=== PATIENT | male | born 1960 | race Caucasian/White ===

== ENCOUNTER → 2022-10-29 09:11 | Outpatient (CLI) | payer OTHER, SELFPAY ==
[2022-10-29 11:20] LABS: Alanine Aminotransferase 22 IU/L (<50); Albumin 4.1 g/dL (3.5-5.0); Albumin Globulin Ratio 1.4 (1.0-2.8); Alkaline Phosphatase 73 U/L (38-126); Aspartate Aminotransferase 30 IU/L (17-59); BUN Creatinine Ratio 14.6 (6-22); Bilirubin Total 0.6 mg/dL (0.2-1.3); Blood Urea Nitrogen 14 mg/dL (9-20); Carbon Dioxide 28 mmol/L (22-32); Chloride 104 mmol/L (98-107); Cholesterol 274 mg/dL (140-199); Estimated Glomerular Filt Rate > 60 mL/min (>60); Glucose 89 mg/dL (80-110); HDL Cholesterol 62 mg/dL (40-60); HEMOLYSIS < 15 (0-50); LDL Cholesterol Calculated 194 mg/dL (<100); Potassium 4.2 mmol/L (3.4-5.1); Sodium 138 mmol/L (137-145); Total Protein 7.1 g/dL (6.3-8.2); Triglycerides 88 mg/dL (35-150)
[2022-10-29 11:46] LABS: Prostate Specific Antigen 0.981 ng/mL (0.10-4.00)
== END ==
PROVIDERS: Family Provider Family Medicine; PCP Family Medicine; Referring Provider Family Medicine; Visit Provider Family Medicine
DX: E78.2 Mixed hyperlipidemia (principal); Z12.5 Encounter for screening for malignant neoplasm of prostate; Z68.31 Body mass index [BMI] 31.0-31.9, adult
CPT/HCPCS: 36415; 80053; 80061; 84153

== ENCOUNTER → 2022-11-24 07:47 | Outpatient (CLI) | payer OTHER, SELFPAY ==
--- NOTE | 2022-11-24 07:49 | DI.NM.S_ITS ---
PROCEDURE: NM EXERCISE TREADMILL NON NUC COMPARISON: None. INDICATIONS: abnormal EKG FINDINGS: the patient exercised for 12 minutes and 28 seconds reaching 96% of maximum predicted heart rate. 12.8METs, CHARLIE -50%. Appropriate BP response to exercise. No angina, no ST changes, and no ectopy during exercise or recovery. IMPRESSION: Low risk, normal treadmill ECG only stress test with excellent exercise tolerance (CHARLIE -50%). No angina during the study. Dictated by: Adriana Dave MD on 11/25/2022 at 14:32 Approved by: Adriana Dave MD on 11/25/2022 at 14:34
== END ==
PROVIDERS: Family Provider Family Medicine; PCP Family Medicine; Referring Provider Family Medicine; Visit Provider Family Medicine
DX: R94.31 Abnormal electrocardiogram [ECG] [EKG] (principal)
CPT/HCPCS: 93017

== ENCOUNTER → 2022-12-03 08:15 | Outpatient (CLI) | payer OTHER, SELFPAY ==
[2022-12-05 23:39] LABS: Lipoprotein (a) 170.7 nmol/L (<75.0)
== END ==
PROVIDERS: Family Provider Family Medicine; PCP Family Medicine; Referring Provider Family Medicine; Visit Provider Family Medicine
DX: E78.2 Mixed hyperlipidemia (principal); R07.9 Chest pain, unspecified
CPT/HCPCS: 36415; 83695; 83721; 86140

== ENCOUNTER → 2023-12-03 09:05 | Outpatient (CLI) | payer OTHER, SELFPAY ==
[2023-12-03 10:16] LABS: Cholesterol 169 mg/dL (140-199); HDL Cholesterol 60 mg/dL (40-60); LDL Cholesterol Calculated 92 mg/dL (<100); Triglycerides 84 mg/dL (35-150)
[2023-12-06 17:09] LABS: Lipoprotein (a) 145.1 nmol/L (<75.0)
== END ==
PROVIDERS: Family Provider Family Medicine; PCP Family Medicine; Referring Provider Internal Medicine; Visit Provider Internal Medicine
DX: E78.00 Pure hypercholesterolemia, unspecified (principal)
CPT/HCPCS: 36415; 80061; 83695

== ENCOUNTER → 2024-02-08 16:07 | Outpatient (CLI) | payer OTHER, SELFPAY ==
--- NOTE | 2024-02-08 16:09 | DI.RAD.S_ITS ---
PROCEDURE: XR SHOULDER LT MIN 2V INDICATIONS: pain x 3weeks TECHNIQUE: 3 views of the shoulder were acquired. COMPARISON: None. FINDINGS: Bones: No fractures or dislocations. No suspicious bony lesions. Visualized ribs appear intact. Soft tissues: No suspicious soft tissue calcifications. IMPRESSION: No acute bony abnormality. Approved by: Adenike Zuniga M.D.,Ph.D. on 02/09/2024 at 0:42
== END ==
PROVIDERS: Family Provider Family Medicine; PCP Family Medicine; Referring Provider Physician Assistant; Visit Provider Physician Assistant
DX: S16.1XXA Strain of muscle, fascia and tendon at neck level, initial encounter (principal); M77.8 Other enthesopathies, not elsewhere classified; X58.XXXA Exposure to other specified factors, initial encounter
CPT/HCPCS: 73030

== ENCOUNTER → 2024-03-07 07:16 | Outpatient (CLI) | payer OTHER, SELFPAY ==
--- NOTE | 2024-03-07 07:30 | DI.MRI.S_ITS ---
PROCEDURE: MR KNEE LT WO CON INDICATIONS: left knee pain/swelling TECHNIQUE: Noncontrast sagittal PD fast spin echo and T2 fast spin echo with fat saturation, sagittal 3-D FLASH with fat saturation; coronal T1 spin echo and PD fast spin echo with fat saturation, and axial PD fast spin echo with fat saturation through the knee. COMPARISON: None. FINDINGS: Image quality: Excellent. Anterior cruciate ligament: Mild mucoid degeneration of the anterior cruciate ligament. Posterior cruciate ligament: Intact. Medial collateral ligament: Intact. Lateral collateral ligament: Intact. Medial meniscus: Radial tearing of the medial meniscus at the junction of the posterior horn and body. Small superior displaced component at the meniscal body extending into the medial femoral gutter. The meniscal body is mildly extruded beyond the femorotibial joint line. Lateral meniscus: Free edge fibrillation versus shallow radial tearing of the body of the lateral meniscus. There is suspected partial tearing at the posterior root attachment of the lateral meniscus with mild meniscal extrusion. Medial and lateral tendons: The semimembranosus tendon insertions appear intact. Visualized portions of the pes anserinus tendons appear normal. The popliteus tendon is intact. Iliotibial band appears normal. Anterior structures: The quadriceps and patellar tendons appear intact. No patellar subluxation. No femoral trochlear dysplasia or ventral trochlear prominence. No edema in the infrapatellar fat pad. Bones and cartilage: No bone marrow contusions or fractures. Medial femorotibial cartilage: High-grade partial thickness cartilage thinning irregularity in the weight-bearing portion of the medial femorotibial compartment with superimposed small area of full-thickness cartilage loss at the anterior weight-bearing portion of the medial tibial plateau with focal subchondral edema and cystic changes. Lateral femorotibial cartilage: Small full-thickness cartilage defect is seen at the posterior weight-bearing portion of the lateral tibial plateau with subchondral edema. [id number] background cartilage thinning in the lateral compartment. Patellofemoral cartilage: Full-thickness cartilage loss is seen at the trochlear groove with associated subchondral edema. There is partial-thickness cartilage irregularity in the remainder of the anterior compartment. Soft tissues: Small joint effusion. Small medial popliteal cyst with adjacent edema that may indicate prior cyst rupture. A large fluid collection is seen in the prepatellar soft tissues at the anterior medial aspect of the knee measuring up to 10.7 x 2.1 x 9.2 cm. There is surrounding subcutaneous edema. IMPRESSION: 1. Complex tearing of the medial meniscus with a dominant radial component at the junction of the posterior horn and body and mild meniscal extrusion as well as a small flap tear at the meniscal body extending into the medial femoral gutter. 2. Partial tearing of the lateral meniscus at the posterior root attachment with mild meniscal extrusion. Free edge fibrillation versus shallow radial tearing at the lateral meniscal body. 3. Small areas of full-thickness cartilage loss are seen in all 3 compartments with associated subchondral edema. Moderate background chondromalacia is present. 4. Small joint effusion. Small medial popliteal cyst with signs of prior cyst rupture. 5. Large prepatellar bursal effusion with surrounding subcutaneous edema. Approved by: Forrest Pedraza M.D. on 03/07/2024 at 10:52
== END ==
PROVIDERS: Family Provider Family Medicine; PCP Family Medicine; Referring Provider Family Medicine; Visit Provider Family Medicine
DX: S83.232A Complex tear of medial meniscus, current injury, left knee, initial encounter (principal); S83.282A Other tear of lateral meniscus, current injury, left knee, initial encounter; S83.92XA Sprain of unspecified site of left knee, initial encounter; M25.462 Effusion, left knee; M94.262 Chondromalacia, left knee; M71.22 Synovial cyst of popliteal space [Baker], left knee; X58.XXXA Exposure to other specified factors, initial encounter
CPT/HCPCS: 73721

== ENCOUNTER → 2024-09-18 07:11 | Outpatient (CLI) | payer MEDICARE, SELFPAY ==
[2024-09-18 08:43] LABS: Alanine Aminotransferase 26 IU/L (<50); Albumin 3.6 g/dL (3.5-5.0); Albumin Globulin Ratio 1.3 (1.0-2.8); Alkaline Phosphatase 75 U/L (38-126); Aspartate Aminotransferase 33 IU/L (17-59); BUN Creatinine Ratio 17.9 (6-22); Bilirubin Total 0.5 mg/dL (0.2-1.3); Blood Urea Nitrogen 17 mg/dL (9-20); Calcium 9.1 mg/dL (8.4-10.2); Carbon Dioxide 24 mmol/L (22-32); Chloride 108 mmol/L (98-107); Cholesterol 168 mg/dL (140-199); Estimated Glomerular Filt Rate > 60 mL/min (>60); Globulin 2.7 g/dL (1.7-4.1); Glucose 94 mg/dL (70-99); HDL Cholesterol 57 mg/dL (40-60); HEMOLYSIS < 15 (0-50); LDL Cholesterol Calculated 86 mg/dL (<100); Potassium 4.1 mmol/L (3.4-5.1); Sodium 138 mmol/L (137-145); Total Protein 6.3 g/dL (6.3-8.2); Triglycerides 126 mg/dL (35-150)
[2024-09-18 09:05] LABS: Prostate Specific Antigen Scrn 1.06 ng/mL (0.1-4.0)
[2024-09-19 04:36] LABS: CRP, High Sensitivity 0.88 mg/L (0.00-3.00)
[2024-09-19 13:41] LABS: Insulin Level Total 3.6 uIU/mL (2.6-24.9)
== END ==
PROVIDERS: Family Provider Family Medicine; PCP Family Medicine; Referring Provider Family Medicine; Visit Provider Family Medicine
DX: E88.810 Metabolic syndrome (principal); Z12.5 Encounter for screening for malignant neoplasm of prostate; E66.9 Obesity, unspecified; Z00.01 Encounter for general adult medical examination with abnormal findings; E78.2 Mixed hyperlipidemia; Z78.9 Other specified health status; R68.82 Decreased libido
CPT/HCPCS: 36415; 80053; 80061; 83525; 84402; 84403; 86140; G0103

== ENCOUNTER 2024-10-24 12:07 | Day surgery (SDC) | payer MEDICARE, SELFPAY ==
[2024-10-24] VITALS (9 sets, daily range): BP systolic 118–150; BP diastolic 68–77; PULSE 54–74; RESP 10–27; TEMP 36.2–36.7; O2SAT 83–100
--- NOTE | 2024-10-24 13:48 | P.HP_ITS ---
History of Present Illness History of Present Illness Chief complaint: [facility] – [place] Narrative: Family history of colon cancer in his father and uncle. He however tested negative for any genetic predisposition [facility] Medical History (Updated 09/13/24 @ 09:08 by Angie Diego DO) Traumatic hemarthrosis of left knee (~02/03/24) Abnormal EKG Surgical History (Updated 08/30/17 @ 06:24 by Conversion Provider) Status post arthroscopy (11/30/08) Family History (Updated 03/21/14 @ 00:00 by Conversion Provider) Father Alcoholic Social History marital status: Meds Home Medications and Allergies Home Medications ?Medication ?Instructions ?Recorded ?Confirmed ?Type multivitamin 1 tab PO DAILY 11/03/2208/30 History evolocumab 140 mg/mL subcutaneous 140 mg SUBCUT Q2W 10/24/24 History pen injector (Repatha SureClick) ezetimibe 10 mg tablet 10 mg PO DAILY 09/13/2410/01 History Allergies Allergy/AdvReac Type Severity Reaction Status Date / Time midazolam (From VERSED) Allergy Mild PARANOID Verified 10/24/24 13:45 Exam Narrative Exam Narrative: Oropharynx free of lesions Assessment & Plan Assessment & Plan narrative: Family history of colon cancer in father and uncle need for follow-up colonoscopy at a 5 year interval. Risks, alternatives have been discussed. Time-Based Coding :: [TOTAL MINUTES] spent with patient and on the chart (including review of chart, obtaining history, exam, reviewing outside data, placing orders, documenting exam and treatment plan, and counseling patient) on [DATE]. 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
--- NOTE | 2024-10-24 13:49 | PM.OP.COLON ---
Operative Date/Time/Diagnoses Date of procedure: 10/24/24 Time of procedure: 15:12 Pre-op diagnosis: See indication and findings Post-op diagnosis: same Procedure & Clinicians Study performed: Colonoscopy Same procedure(s) as scheduled: Yes Indications: Family history of colon cancer Surgeon: Jose Melchor Procedure Notes Procedure in detail: After informed consent was obtained the patient was placed in left lateral decubitus position. The video colonoscope was introduced the rectum slowly advanced cecum. On slow withdrawal mucosa was carefully examined. Preparation was good. The scope was removed. The patient tolerated procedure well. Blood loss none Complications none Sedation mac Findings 1. Normal colonoscopy to cecum I would suggest that patient follow-up colonoscopy in 5 years
[2024-10-24] MEDS: LACTATED RINGERS 1,000 ML 42 ML IV (13:55)
--- NOTE | 2024-10-24 15:07 | SUR.PHASEI ---
Jose Villalta, LEXY, notified regarding wheezing in patient's left lung. Lasix 10mg x1 ordered.
[2024-10-24] MEDS: FUROSEMIDE 20 MG/2 ML VIAL 10 MG IV (15:16)
--- NOTE | 2024-10-24 15:21 | SUR.PHASEI ---
Patient denied shortness of breath or chest pain. Reported cough with deep breath.
--- NOTE | 2024-10-24 15:40 | SUR.PHASEI ---
Jose Villalta updated with patient status. PACKAGER evaluating patient.
--- NOTE | 2024-10-24 15:41 | SUR.PHASEI ---
Patient may discharge per Jose Villalta.
== END 2024-10-24 16:00 | disposition home or self-care (01) ==
PROVIDERS: Family Provider Family Medicine; PCP Family Medicine; Referring Provider Family Medicine; Visit Provider Internal Medicine Gastroenterology
PROC: 0DJD8ZZ Inspection of Lower Intestinal Tract, Via Natural or Artificial Opening Endoscopic (ICD-10-PCS; CPT 45378; principal; 2024-10-24 12:30)
DX: Z12.11 Encounter for screening for malignant neoplasm of colon (principal)
CPT/HCPCS: G0105; J1938; J2704